=== PATIENT | male | born 1965 | race American Indian/Alaskan Native ===

== ENCOUNTER 2021-04-28 21:30 | Emergency (ER) | payer MEDICAID ==
[2021-04-28 22:38] LABS: Basophils % (Auto) 0.4 % (0.0-1.8); Eosinophils # (Auto) 0.2 K/mm3 (0.0-0.4); Eosinophils % (Auto) 2.4 % (0.0-4.3); Hematocrit 42.6 % (35.5-45.6); Hemoglobin 14.5 gm/dl (11.8-15.2); Lymphocytes # (Auto) 1.9 K/mm3 (1.2-5.4); Lymphocytes % (Auto) 28.5 % (13.4-35.0); Mean Corpuscular HGB Conc 34 % (32-34); Mean Corpuscular Volume 94 fl (84-94); Monocytes # (Auto) 0.6 K/mm3 (0.0-0.8); Monocytes % (Auto) 8.4 % (0.0-7.3); Platelet Count 317 K/mm3 (140-440); Red Blood Count 4.54 M/mm3 (3.65-5.03); Red Cell Distribution Width 13.5 % (13.2-15.2)
[2021-04-28 23:01] LABS: Alanine Aminotransferase 24 units/L (7-56); Albumin 4.7 g/dL (3.9-5); Blood Urea Nitrogen 19 mg/dL (9-20); Calcium 9.5 mg/dL (8.4-10.2); Hemolysis Index 7
[2021-04-28 23:06] LABS: BUN/Creatinine Ratio 32
[2021-04-29] MEDS ORDERED: MORPHINE 2 MG/1 ML INJ IV ONE (01:43)
[2021-04-29] MEDS ORDERED: ONDANSETRON 4 MG/2 ML INJ IV ONE (01:43)
[2021-04-29] MEDS ORDERED: SODIUM CHLORIDE 0.9% 1000 ML 1,000 ML IV ONE (01:43)
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
--- NOTE | 2021-04-29 02:32 | XRay Report ---
CHEST 1 VIEW INDICATION / CLINICAL INFORMATION: sob. COMPARISON: None available. FINDINGS: SUPPORT DEVICES: None. HEART / MEDIASTINUM: No significant abnormality. LUNGS / PLEURA: Mild pulmonary vascular congestion. Small right pleural effusion. Lungs are otherwise clear. No pneumothorax. ADDITIONAL FINDINGS: No significant additional findings. IMPRESSION: 1. Mild pulmonary vascular congestion with very small right pleural effusion. Signer Name: Amara Gandhi MD Signed: 04/29/2021 2:27 AM Workstation Name: [id number]
--- NOTE | 2021-04-29 03:27 | Cat Scan Report ---
CT abdomen pelvis w con INDICATION / CLINICAL INFORMATION: epigastric abd pain, vomiting. TECHNIQUE: Axial CT imaging of abdomen and pelvis was obtained with IV contrast. Coronal and sagittal reformatte d imaging obtained and reviewed. All CT scans at this location are performed using CT dose reduction for ALARA by means of automated exposure control. COMPARISON: None available. FINDINGS: CT abdomen with contrast demonstrates normal appearance of the liver, spleen, pancreas, kidneys, and adrenal glands. Gallbladder is either collapsed or surgically removed. CT pelvis with contrast does not demonstrate any mass, free fluid, or focal inflammatory change. A no rmal appendix is present in the right lower quadrant. There are a few fluid-filled loops of small bowel scattered throughout the abdomen and pelvis without abnormal dilatation or inflammatory change. This could represent mild enteritis. GI tract is otherwi se unremarkable. There is mild diffuse wall thickening throughout the bladder. Visualized lung bases demonstrate pulmonary scarring within the right lung base. There is mild pleura l thickening. There is no pleural effusion, as suggested on recent chest radiograph. Blunting of the right costophrenic angle is due to pleural scarring/thickening. Review of osseous structures demonstrates intramedullary sam within the right hip. No acute osseous a bnormality noted. IMPRESSION: 1. Questionable mild enteritis. Please correlate with clinical presentation/symptoms. 2. Diffuse bladder wall thickening. Signer Name: Amara Gandhi MD Signed: 04/29/2021 3:22 AM Workstation Name: [id number]
[2021-04-29 03:54] VITALS: BP 110/58
[2021-04-29 04:23] LABS: Bacteria,Urine 1+ /HPF (Negative); Bilirubin,Urine NEG (Negative); Blood,Urine NEG (Negative); Color,Urine Yellow (Yellow); Mucus,Urine FEW /HPF; Protein,Urine <15 mg/dL mg/dL (Negative); Urobilinogen,Urine < 2.0 mg/dL (<2.0)
--- NOTE | 2021-04-30 10:38 | Electrocardiograph Report ---
[facility] Test Date: 2021-04-28 Test Time: 21:56:25 Pat Name: CHRISTOPHER MANZANARES Department: Room: Gender: M Meter Installer: : 1965 Requested By: TALAT CASTILLO Order Number: [id number] Reading MD: Jeffrey Cruz Measurements Intervals [place] Rate: 73 P: 87 W[place]: 169 QRS: 86 QRSD: 91 T: 66 QT: 363 QTc: 401 Interpretive Statements Sinus rhythm No previous ECG available for comparison Electronically Signed On 04-30-2021 10:37:55 EDT by Jeffrey Cruz
== END 2021-04-29 05:21 | disposition home or self-care (01) ==
LOC: ED 21:30
DX: K52.9 Noninfective gastroenteritis and colitis, unspecified (principal); N39.0 Urinary tract infection, site not specified; Z98.890 Other specified postprocedural states; Z79.4 Long term (current) use of insulin; Z79.899 Other long term (current) drug therapy
CPT/HCPCS: 36415; 71045; 74177; 80053; 81001; 84484; 85025; 87086; 87186; 93005; 96361; 96374; 96375; 99284; J2270; J2405; J7030; Q9967